=== PATIENT | male | born 1990 | race Caucasian/White ===

== ENCOUNTER 2016-10-27 12:18 | Emergency (ER) | payer MEDICAID ==
[2016-10-27 12:25] VITALS: O2SAT 96
--- NOTE | 2016-10-27 13:02 | EDPHY ---
H & P Stated Complaint: Bilateral Valladares Pain, non-traumatic Time Seen by Provider: 10/27/16 12:44 HPI/ROS: CHIEF COMPLAINT: Valladares pain HISTORY OF PRESENT ILLNESS: The patient is a 25-year-old man who comes to the emergency department complaining of bilateral valladares pain nontraumatic. 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 He has developed pain in bilateral anterior shins when he dances. He does not have any pain at rest. No swelling or deformity. REVIEW OF SYSTEMS: Constitutional: denies: chills, fever, recent illness, recent injury EENTM: denies: blurred vision, double vision, nose congestion Respiratory: denies: cough, shortness of breath Cardiac: denies: chest pain, irregular heart rate, lightheadedness, palpitations Gastrointestinal/Abdominal: denies: abdominal pain, diarrhea, nausea, vomiting, blood streaked stools Genitourinary: denies: dysuria, frequency, hematuria, pain Musculoskeletal: See HPI Skin: denies: lesions, rash, jaundice, bruising Neurological: denies: headache, numbness, paresthesia, tingling, dizziness, weakness Hematologic/Lymphatic: denies: blood clots, easy bleeding, easy bruising Immunologic/allergic: denies: HIV/AIDS, transplant EXAM: GENERAL: Well-appearing, well-nourished and in no acute distress. HEAD: Atraumatic, normocephalic. EYES: Pupils equal round and reactive to light, extraocular movements intact, sclera anicteric, conjunctiva are normal. ENT: TMs normal, nares patent, oropharynx clear without exudates. Moist mucous membranes. NECK: Normal range of motion, supple without lymphadenopathy or JVD. LUNGS: Breath sounds clear to auscultation bilaterally and equal. No wheezes rales or rhonchi. HEART: Regular rate and rhythm without murmurs, rubs or gallops. ABDOMEN: Soft, nontender, normoactive bowel sounds. No guarding, no rebound. No masses appreciated. BACK: No CVA tenderness, no spinal tenderness, step-offs or deformities EXTREMITIES: mild tenderness to bilateral medial shins over tibial surface. No visible swelling or erythema. No sign of trauma. NEUROLOGICAL: Cranial nerves II through XII grossly intact. Normal speech, normal gait. 5/5 strength, normal movement in all extremities, normal sensation PSYCH: Normal mood, normal affect. SKIN: Warm, dry, normal turgor, no visible rashes or lesions. Source: Patient Exam Limitations: No limitations - Personal History Current Tetanus/Diphtheria Vaccine: Yes Current Tetanus Diphtheria and Acellular Pertussis (TDAP): Yes - Medical/Surgical History Hx Asthma: No Hx Chronic Respiratory Disease: No Hx Diabetes: No Hx Cardiac Disease: No Hx Renal Disease: No Hx Cirrhosis: No Hx Alcoholism: No Hx HIV/AIDS: No Hx Splenectomy or Spleen Trauma: No - Family History Significant Family History: No pertinent family hx - Social History Smoking Status: Never smoked Alcohol Use: Sober Drug Use: None Constitutional: Initial Vital Signs Temperature (C) 36.8 C 10/27/16 12:22 Heart Rate 90 10/27/16 12:22 Respiratory Rate 16 10/27/16 12:22 Blood Pressure 123/79 H 10/27/16 12:22 O2 Sat (%) 96 10/27/16 12:22 O2 Delivery Mode Room Air Allergies/Adverse Reactions: cat dander Allergy (Verified 10/27/16 12:22) Home Medications: Medication Instructions Recorded NK [No Known Home Meds] 10/27/16 Medical Decision Making Procedures: Procedure: Splint placement. A bilateral Rico wrap was applied. After application of the splint I returned and re-examined the patient. The splint was adequately immobilizing the joint and distal to the splint the patient's circulation and sensation was intact. ED Course/Re-evaluation: The patient clinically has valladares splints. Will treat him with NSAIDs and compression and ice. I encouraged rest but he is starting a 6 month tour next week. We also discussed physical therapy but he is leaving out of town next week and will not be and 1 location for more than a few days. We discussed the limitations and he understands that he will have continued pain until he is able to rest his legs adequately. Differential Diagnosis: Partial list of the Differential diagnosis considered include but were not limited to; valladares splints, sprain and although unlikely based on the history and physical exam, I also considered fracture, DVT, cellulitis. I discussed these differential diagnoses and the plan with the patient as well as the usual and expected course. The patient understands that the diagnosis is provisional and that in medicine we are not always correct and that further workup is often warranted. Usual and customary warnings were given. All of the patient's questions were answered. The patient was instructed to return to the emergency department should the symptoms at all worsen or return, otherwise to followup with the physician as we discussed. Departure - Departure Disposition: Home, Routine, Self-Care Clinical Impression: Valladares splints Qualifiers: Encounter type: initial encounter Laterality: unspecified laterality Qualified Code(s): S86.899A - Other injury of other muscle(s) and tendon(s) at lower leg level, unspecified leg, initial encounter Condition: Fair Instructions: Valladares Splints (ED) Referrals: Artem Kim MD [Medical Doctor] - As per Instructions
[2016-10-27 13:31] VITALS: BP 124/76; PULSE 78; RESP 17; TEMP 98.8
== END 2016-10-27 13:30 | disposition home or self-care (01) ==
DX: S86.899A Other injury of other muscle(s) and tendon(s) at lower leg level, unspecified leg, initial encounter (principal); X58.XXXA Exposure to other specified factors, initial encounter